=== PATIENT | female | born 2005 | race Caucasian/White ===

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

== ENCOUNTER 2024-01-09 23:17 | Emergency (ER) | payer OTHER, SELFPAY ==
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
[2024-01-09 23:18] VITALS: BP 115/27; PULSE 69; RESP 18; TEMP 36.8; O2SAT 98; BMI 21.8
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
[2024-01-10 02:12] VITALS: BP 98/67; PULSE 67; RESP 16; TEMP 36.7; O2SAT 98
[2024-01-10 02:18] VITALS: BP 98/67; PULSE 67; RESP 16; TEMP 36.7; O2SAT 98
== END 2024-01-10 02:20 | disposition home or self-care (01) ==
PROVIDERS: Emergency Provider Emergency Medicine Emergency Medical Services
DX: S09.90XA Unspecified injury of head, initial encounter (principal); S00.03XA Contusion of scalp, initial encounter; S13.9XXA Sprain of joints and ligaments of unspecified parts of neck, initial encounter; V43.52XA Car driver injured in collision with other type car in traffic accident, initial encounter; Y93.89 Activity, other specified; Y92.410 Unspecified street and highway as the place of occurrence of the external cause; Y99.9 Unspecified external cause status
CPT/HCPCS: 70450; 72125; 99283; 99284